=== PATIENT | female | born 1995 | race Caucasian/White ===

== ENCOUNTER 2019-07-19 13:02 | Emergency (ER) | payer SELFPAY ==
[2019-07-19] MEDS ORDERED: predniSONE 20 MG TAB ONE (13:31)
[2019-07-19] MEDS ORDERED: diphenhydrAMINE 25 MG CAP ONE (13:31)
== END 2019-07-19 13:59 | disposition home or self-care (01) ==
LOC: ERS 13:02
DX: R21 Rash and other nonspecific skin eruption (principal); J45.909 Unspecified asthma, uncomplicated; F31.9 Bipolar disorder, unspecified; F17.210 Nicotine dependence, cigarettes, uncomplicated
CPT/HCPCS: 99282; J7512; Q0163

== ENCOUNTER 2020-06-07 13:49 | Emergency (ER) | payer SELFPAY | END 2020-06-07 14:36 | LOC: ERS 13:49 | DX: F10.129 Alcohol abuse with intoxication, unspecified (principal) | CPT/HCPCS: 99284 ==